=== PATIENT | female | born 1960 | race Caucasian/White ===

== ENCOUNTER → 2024-06-29 | Outpatient (CLI) | payer MEDICARE, BC ==
--- NOTE | 2024-06-29 13:39 | MM ---
Reason for Exam: Screening (asymptomatic). Last mammogram was performed 2 year(s) and 0 month(s) ago. Patient History: Menarche at age 11. First Full-Term at age 19. Postmenopausal. Patient has history of breast feeding. Risk Values: Renate 5 year model risk: 1.5%. NCI Lifetime model risk: 5.6%. Prior Study Comparison: 12/05/2018 Bilateral MG screening mammo w CAD - 2, [facility]. 03/04/2020 Bilateral MG screening mammo w CAD - 2, [facility]. 07/11/2022 Bilateral MG 3D screening mammo w/cad, [facility]. Tissue Density: There are scattered areas of fibroglandular density. Findings: Analyzed By CAD. Benign appearing bilateral axillary lymph nodes are redemonstrated. There is no suspicious group of microcalcifications or new suspicious mass in either breast. Overall Assessment: Negative, BI-RAD 1 Management: Screening Mammogram of both breasts in 1 year. . Patient should continue monthly self-breast exams. A clinical breast exam by your physician is recommended on an annual basis. This exam should not preclude additional follow-up of suspicious palpable abnormalities. Note on Renate scores and lifetime risk: 1. A Renate score greater than 3% is considered moderate risk. If this is the case, consider specialist referral to assess eligibility for a risk reducing agent. 2. If overall lifetime risk for the development of breast cancer is 20% or higher, the patient may qualify for future screening with alternating mammogram and breast MRI. [facility], , 06/29/2024 1:36 PM. Electronically signed and approved by: Kanu Funez M.D.
== END | disposition home or self-care (01) ==
LOC: RADMAMWWP 12:49
PROVIDERS: ATTEND Internal Medicine
DX: Z12.31 Encounter for screening mammogram for malignant neoplasm of breast (principal); R92.323 Mammographic fibroglandular density, bilateral breasts; Z78.0 Asymptomatic menopausal state
CPT/HCPCS: 77063; 77067

== ENCOUNTER 2024-08-24 05:54 | Day surgery (SDC) | payer MEDICARE, BC ==
[2024-08-23 09:01] VITALS: BMI 27.4
[~2024-08-24 05:54] MED LIST: LIDOCAINE 1% (10MG/ML) FOR IV START INTRADERMA PRN
[2024-08-24] MEDS: IV FLUID CONTINUATION 1,000 ML IV ONE (06:27)
[2024-08-24 06:39] VITALS: TEMP 97.1
[2024-08-24] MEDS: LACTATED RINGERS 1,000 ML IV SCH (06:47)
[2024-08-24] MEDS ORDERED: LIDOCAINE 1% INJ 10MG/ML (20 ML MDV) ONE (06:59)
[2024-08-24] MEDS ORDERED: PROPOFOL 10 MG/ML 20 ML VIAL IV ONE (06:59)
--- NOTE | 2024-08-24 07:32 | P.PCN ---
Date of Procedure: 08/24/24 Procedure(s) Performed: Brief history: Patient is a pleasant 64-year-old white female scheduled for an elective upper endoscopy as well as colonoscopy as a part of evaluation of GERD and screening for colon cancer Procedure performed: Esophagogastroduodenoscopy Colonoscopy with snare polypectomy with biopsy Preoperative diagnosis: GERD Screening for colon cancer Anesthesia: [facility] Procedure: After informed consent was obtained from the patient was brought into the endoscopy unit and IV sedation was administered by anesthesia under continuous monitoring. Initially upper endoscopy was done. The Olympus GF 160 video endoscope was inserted inserted into the mouth and esophagus intubated without any difficulty and was gradually advanced into the stomach and duodenum and carefully examined. The bulb and second part of the duodenum appeared normal. The scope was then withdrawn into the stomach adequately insufflated with air and upon careful examination the antrum had mild gastritis and biopsies were done from this area. Mucosa nd body, cardia and fundus appeared normal. The scope was then withdrawn into the esophagus. The GE junction was located at 40 cm to the incisors. It appeared regular with no erythema erosions or ulcerations. Rest of the esophagus appeared normal. Patient tolerated the procedure well. At this time the patient continued to remain sedation. Initial digital rectal examination was normal. Olympus CF 160 video colonoscope was then inserted into the rectum and gradually advanced to the cecum without any difficulty. Careful examination was performed as the scope was gradually being withdrawn. The prep was excellent. The cecum, appeared normal. The ascending colon there was a 5 mm polyp removed by cold snare polypectomy.) flexure there was a 5 mm and 7 mm polyp removed by cold snare polypectomy. Rest of the ascending colon, transverse colon, descending colon, sigmoid colon and rectum appeared normal. Retroflexion was performed in the rectum and no lesions were noted. Patient tolerated the procedure well. Impression: 1. Upper endoscopy revealed mild gastritis but no evidence of esophagitis or Meza's esophagus 2. Colonoscopy revealed 5 mm ascending colon polyp, 5 mm and 7 mm hepatic flexure polyp status post polypectomy Recommendations: Findings of this examination were discussed with the patient as well as her family. She was advised to follow-up with the biopsy results. If the biopsy reveals adenoma she can have repeat colonoscopy in 3 years. Continue with omeprazole 20 mg daily and follow antireflux measures
[2024-08-24 07:54] VITALS: BP 112/71; PULSE 79; RESP 18
== END 2024-08-24 08:23 | disposition home or self-care (01) ==
LOC: ORWHC2ENDO 05:54
PROVIDERS: ATTEND Internal Medicine Gastroenterology
DX: Z12.11 Encounter for screening for malignant neoplasm of colon (principal); K29.50 Unspecified chronic gastritis without bleeding; D12.2 Benign neoplasm of ascending colon; D12.3 Benign neoplasm of transverse colon; K21.9 Gastro-esophageal reflux disease without esophagitis; E78.5 Hyperlipidemia, unspecified; Z87.891 Personal history of nicotine dependence; Z88.5 Allergy status to narcotic agent; Z88.6 Allergy status to analgesic agent; Z79.02 Long term (current) use of antithrombotics/antiplatelets; Z79.899 Other long term (current) drug therapy
CPT/HCPCS: 45385; 43239; J2003; J2704; 88305